=== PATIENT | female | born 1955 | race Caucasian/White ===

== ENCOUNTER 2018-06-15 14:18 | Inpatient (IN) | payer MEDICARE, MEDICAID ==
[2018-06-15] MEDS ORDERED: Maalox 30 mL Cup PO PRN (14:55)
[2018-06-15] MEDS ORDERED: Magnesium Hydroxide (MOM) 30 mL UDC PO PRN (14:55)
[2018-06-15 15:18] VITALS: BP 134/79
[2018-06-16 06:30] LABS: CHOLESTEROL 166 mg/dL (<200); HDL -HIGH DENSITY LIPOPROTEIN 53 mg/dL (23-92); TRIGLYCERIDES 106 mg/dL (<150)
[2018-06-16] MEDS ORDERED: Non-Formulary Item 1 EA (Atorvastatin Calcium [Lipitor] 20 MG) PO SCH (09:00)
--- NOTE | 2018-06-16 09:15 | History and Physical ---
History of Present Illness - HPI Chief Complaint: Hallucination HPI: Patient was transfered from [facility] due to Hallucinations, She was put in 5150. Vital Signs: Last Vital Signs Temp 98.4 F 06/16/18 06:04 Pulse 74 06/16/18 06:04 Resp 20 06/16/18 06:04 BP 150/72 06/16/18 06:04 Pulse Ox 97 06/16/18 06:04 Past Medical History Cardiovascular: Report: No Pertinent Hx Pulmonary: Report: No Pertinent Hx [employer]: Report: Dementia GI: Report: No Pertinent Hx Psych: Report: Psychosis Musculoskeletal: Report: No Pertinent Hx Rheumatologic: Report: No pertinent Hx Infectious Disease: Report: No Pertinent Hx Renal/: Report: No Pertinent Hx Endocrine: Report: Diabetes Dermatology: Report: No Pertinent Hx Family Medical History - Family Member Father Hx Family Diabetes: Yes Social History Smoke: No Alcohol: None Drugs: None Lives: [facility] Domestic Violence: Negative - Medications Home Medications: Home Medication Medication Instructions Recorded Type Atorvastatin Calcium [Lipitor] 20 mg PO DAILY 06/15/18 History Docusate Sodium [Colace] 100 mg PO BID 06/15/18 History Lorazepam [Ativan] 1 mg PO Q4HR PRN 06/15/18 History metFORMIN [Glucophage] 500 mg PO BID 06/15/18 History - Allergies Allergies/Adverse Reactions: Allergies Allergy/AdvReac Type Severity Reaction Status Date / Time No Known Allergies Allergy Verified 06/15/18 14:48 Review of Systems - Review of Systems Constitutional: Report: No Significant Eyes: Report: Other (Patient is blind) ENT: Report: No Significant Respiratory: Report: No Significant Cardiovascular: Report: No Significant Gastrointestinal: Report: No Significant Genitourinary: Report: No Significant Musculoskeletal: Report: No Significant Skin: Report: No Significant Neurological: Report: Weakness Physical Exam - Physical Exam HEENT: Report: Ears Nose Throat within normal limits, Other (Patient is blind) Neck: Report: Within normal limits Cardiovascular Systems: Report: Regular, Rate and Rhythm Respiratory: Report: Breath Sounds are within normal limits Abdomen: Report: Non-tender to palpation Extremities: Report: Non-tender to palpation. Skin: Report: Color of skin is within normal limits, Warm Neuro/Psych: Report: Disoriented to name time or place - Lab Results All Lab Results last 24 hours: Laboratory Results - last 24 hr 06/16/18 05:35 Triglycerides 106 Cholesterol 166 LDL Cholesterol Direct 96 HDL Cholesterol 53 - Assessment Assessment: Patient is awake, alert, calm, in no acute distress. Dx: Increased in agitation , Blind, DM, - Plan Plan: Patient is under Psychiatric care. Will continue with SNF meds. Will continue to monitor.
[2018-06-16] MEDS: Atorvastatin Calcium 10 MG TAB PO SCH (09:34)
[2018-06-16] MEDS: Multivitamin Tab PO SCH (09:35)
[2018-06-17 06:28] LABS: % BASOPHILS 0.6 % (0.0-2.0); % EOSINOPHILS 2.4 % (0.0-5.0); % LYMPHOCYTES 22.4 % (20.0-50.0); % MONOCYTES 7.4 % (2.0-10.0); % NEUTROPHILS 67.2 % (40.0-80.0); EOSINOPHILE ABSOLUTE 0.1 Th/cmm (0.1-0.4); HEMOGLOBIN 13.2 gm/dL (12-16); LYMPHOCYTE ABSOLUTE 1.3 Th/cmm (1.5-3.0); MEAN CELL VOLUME 90.1 fl (81-100); MEAN CORPUSCULAR HEMOGLOBIN 29.7 pg (27.0-31.0); MEAN PLATELET VOLUME 8.1 fl; MONOCYTE ABSOLUTE 0.4 Th/cmm (0.3-1.0); NEUTROPHILE ABSOLUTE 4.2 Th/cmm (1.8-8.0); PLATELET COUNT 302 Th/cmm (150-400); RED BLOOD COUNT 4.44 Mil/cmm (3.80-5.20); RED CELL DISTRIBUTION WIDTH 14.1 % (11.5-20.0)
[2018-06-17 06:36] LABS: ALB/GLOB RATIO 1.5 (1.0-1.8); ALBUMIN 4.1 gm/dL (3.7-5.3); ALKALINE PHOSPHATASE 80 U/L (34-104); ANION GAP 11.2 (7.0-16.0); BILIRUBIN,TOTAL 0.5 mg/dL (0.3-1.0); BUN - UREA NITROGEN 12 mg/dL (7-25); CALCIUM SERUM 9.5 mg/dL (8.6-10.3); CARBON DIOXIDE 26.6 mEq/L (21.0-31.0); CHLORIDE 105 mEq/L (98-107); CREATININE - SERUM 0.6 mg/dL (0.6-1.2); GFR AFRICAN-AMERICAN > 60.0 ml/min (>90); GFR NON AFRICAN-AMERICAN > 60.0 ml/min; GLUCOSE 119 mg/dL (70-105); POTASSIUM SERUM 3.8 mEq/L (3.5-5.1); SGOT 16 U/L (13-39); SGPT/ALT 14 U/L (7-52); SODIUM SERUM 139 mEq/L (136-145); TOTAL PROTEIN,SERUM 6.9 gm/dL (6.0-8.3)
--- NOTE | 2018-06-17 09:16 | General Progress Note ---
Subjective - Review of Systems Service Date: 06/17/18 Subjective: Patient is confused Objective - Results Result Diagrams: 06/17/18 05:45 06/17/18 05:45 Recent Labs: Laboratory Last Values WBC 6.0 Th/cmm (4.8-10.8) 06/17/18 05:45 RBC 4.44 Mil/cmm (3.80-5.20) 06/17/18 05:45 Hgb 13.2 gm/dL (12-16) 06/17/18 05:45 Hct 40.0 % (41.0-60) L 06/17/18 05:45 MCV 90.1 fl (81-100) 06/17/18 05:45 MCH 29.7 pg (27.0-31.0) 06/17/18 05:45 MCHC Differential 33.0 pg (28.0-36.0) 06/17/18 05:45 RDW 14.1 % (11.5-20.0) 06/17/18 05:45 Plt Count 302 Th/cmm (150-400) 06/17/18 05:45 MPV 8.1 fl 06/17/18 05:45 Neutrophils % 67.2 % (40.0-80.0) 06/17/18 05:45 Lymphocytes % 22.4 % (20.0-50.0) 06/17/18 05:45 Monocytes % 7.4 % (2.0-10.0) 06/17/18 05:45 Eosinophils % 2.4 % (0.0-5.0) 06/17/18 05:45 Basophils % 0.6 % (0.0-2.0) 06/17/18 05:45 Sodium 139 mEq/L (136-145) 06/17/18 05:45 Potassium 3.8 mEq/L (3.5-5.1) 06/17/18 05:45 Chloride 105 mEq/L (98-107) 06/17/18 05:45 Carbon Dioxide 26.6 mEq/L (21.0-31.0) 06/17/18 05:45 Anion Gap 11.2 (7.0-16.0) 06/17/18 05:45 BUN 12 mg/dL (7-25) 06/17/18 05:45 Creatinine 0.6 mg/dL (0.6-1.2) 06/17/18 05:45 Est GFR ( Amer) > 60.0 ml/min (>90) 06/17/18 05:45 Est GFR (Non-Af Amer) > 60.0 ml/min 06/17/18 05:45 BUN/Creatinine Ratio 20.0 06/17/18 05:45 Glucose 119 mg/dL (70-105) H 06/17/18 05:45 Calcium 9.5 mg/dL (8.6-10.3) 06/17/18 05:45 Total Bilirubin 0.5 mg/dL (0.3-1.0) 06/17/18 05:45 AST 16 U/L (13-39) 06/17/18 05:45 ALT 14 U/L (7-52) 06/17/18 05:45 Alkaline Phosphatase 80 U/L (34-104) 06/17/18 05:45 Total Protein 6.9 gm/dL (6.0-8.3) 06/17/18 05:45 Albumin 4.1 gm/dL (3.7-5.3) 06/17/18 05:45 Globulin 2.8 gm/dL 06/17/18 05:45 Albumin/Globulin Ratio 1.5 (1.0-1.8) 06/17/18 05:45 Triglycerides 106 mg/dL (<150) 06/16/18 05:35 Cholesterol 166 mg/dL (<200) 06/16/18 05:35 LDL Cholesterol Direct 96 mg/dL (75-193) 06/16/18 05:35 HDL Cholesterol 53 mg/dL (23-92) 06/16/18 05:35 TSH 1.60 uIU/ml (0.34-5.60) 06/17/18 05:45 - Physical Exam Vitals and I&O: Vital Signs Temp 97.7 F 06/17/18 05:20 Pulse 69 06/17/18 05:20 Resp 20 06/17/18 05:20 BP 113/63 06/17/18 05:20 Pulse Ox 97 06/17/18 05:20 Intake & Output 06/16/18 06/17/18 06/17/18 18:59 06:59 18:59 Intake Total 480 Balance 480 Intake: Oral 480 Other: # Voids 2 2 # Bowel Movements 1 Active Medications: Current Medications Acetaminophen (Tylenol) 650 mg PO Q4H PRN PRN Reason: Mild Pain / Temp above 100 Stop: 08/14/18 14:54 Al Hydrox/Mg Hydrox/Simethicone (Maalox) 30 ml PO Q4HR PRN PRN Reason: GI DISTRESS Stop: 08/14/18 14:54 Atorvastatin Calcium (Lipitor) 20 mg PO DAILY [facility]; Protocol Stop: 08/15/18 08:59 Last Admin: 06/16/18 09:34 Dose: 20 mg Docusate Sodium (Colace) 100 mg PO BID [facility] Stop: 08/14/18 16:59 Last Admin: 06/16/18 16:54 Dose: 100 mg Lorazepam (Ativan) 0.5 mg PO Q4H PRN; Protocol PRN Reason: Anxiety Stop: 08/14/18 14:54 Magnesium Hydroxide (Milk Of Magnesia) 30 ml PO HS PRN PRN Reason: Constipation Metformin HCl (Glucophage) 500 mg PO BID [facility] Stop: 08/14/18 16:59 Last Admin: 06/16/18 16:54 Dose: 500 mg Multivitamins/Vitamin C (Theragran) 1 tab PO DAILY [facility] Stop: 08/15/18 08:59 Last Admin: 06/16/18 09:35 Dose: 1 tab Quetiapine Fumarate (Seroquel) 25 mg PO BID [facility]; Protocol Stop: 08/15/18 08:59 Last Admin: 06/16/18 16:54 Dose: 25 mg Quetiapine Fumarate (Seroquel) 50 mg PO HS [facility]; Protocol Stop: 08/15/18 20:59 Last Admin: 06/16/18 21:14 Dose: 50 mg Zolpidem Tartrate (Ambien) 5 mg PO HS PRN PRN Reason: Insomnia Stop: 08/14/18 14:54 Last Admin: 06/16/18 21:14 Dose: 5 mg General: Alert, No acute distress HEENT: Atraumatic, Other (patient is blind) Neck: Supple Cardiovascular: Regular rate Lungs: Clear to auscultation Abdomen: Bowel sounds, Soft Extremities: Other (No edema) Neurological: Normal gait Skin: Other (Warm and dry) Psych/Mental Status: Other (Patient is confused, not oriented.) Assessment/Plan - Assessment Assessment: Patient is awake, alert, calm, in no acute distress. Dx: Increased in agitation , Blind, DM, - Plan Plan: Patient is under Psychiatric care. Will continue with SNF meds. Will continue to monitor.
[2018-06-17] MEDS: Atorvastatin Calcium 10 MG TAB PO SCH (09:24)
[2018-06-17] MEDS: Multivitamin Tab PO SCH (09:24)
--- NOTE | 2018-06-17 16:43 | Psychiatric Evaluation ---
DATE OF SERVICE: 06/15/2018 CHIEF COMPLAINT: Delusion and paranoia. HISTORY OF PRESENT ILLNESS: The patient is a 63-year-old female who I evaluated in [facility]. The patient has been delusional and actively responding to stimuli. The patient has been talking nonsense and was not able to carry on coherent conversation. The patient was talking about heaven, about ulises, and about up above, and was not able to give me any information about her living situation. The patient is legally blind and was actively talking to herself. PAST PSYCHIATRIC HISTORY: The patient has history of what seems to be schizoaffective disorder. PAST MEDICAL HISTORY: The patient is legally blind. SOCIAL HISTORY: Not much information known at this time, but it seems that the patient is living with her sister. No known alcohol or drug use. ALLERGIES: No known allergies. MENTAL STATUS EXAMINATION: The patient appears her stated age. Legally blind. Rambling and thought processes are circumstantial and with flight of ideas and disorganized. The patient did not answer questions regarding hallucinations or delusions, but actively responding to stimuli. The patient is alert, but seems to be disoriented to time, place, person, and situation. Unable to assess her memory at this time because the patient was not able to answer the questions currently. Poor insight and poor judgment. ASSESSMENT: PRIMARY DIAGNOSES: Schizoaffective disorder, mixed type, severe, with psychotic features. MEDICAL DIAGNOSIS: Legally blind. TREATMENT PLAN: Continue to monitor her behavior and her condition closely. We will start Seroquel in a dose of 25 mg b.i.d. and 50 mg at bedtime. Also, we will monitor her behavior and work on possible placement issue versus more information about her living situation. ESTIMATED LENGTH OF STAY: 5-7 days. THE PATIENT'S STRENGTHS AND WEAKNESSES: The patient's strength is not clear at this time. Weaknesses is her psychosis and delusion. AFTER DISCHARGE PLAN: Outpatient treatment and followup will continue as an outpatient and the patient might need placement. CRITERIA FOR DISCHARGE: The patient will not be psychotic and will stabilize psychotropic medications and we will establish outpatient treatment plans. [facility]# [id number]
--- NOTE | 2018-06-18 02:38 | Progress Notes ---
DATE: 06/17/2018 PSYCHIATRIC PROGRESS NOTE SUBJECTIVE: Chart reviewed and the patient interviewed. Also discussed the patient's condition with the staff and reviewed records and labs. The patient is still easily agitated. The patient also is actively hallucinating and talking to herself. The patient also is delusional and paranoid. The patient is still unable to provide any safe plan for self-care. She also still needs lots of redirections. Otherwise, the patient is compliant with taking her medications with no side effects. ASSESSMENT: The patient is still psychotic and is still confused. TREATMENT PLAN: We will continue monitoring her condition and her medications closely. Also, we will work on her psychosis. Also, we will place the patient on 5250 hold for dangerous to self as well as grave disability. JOB# [id number]
[2018-06-18] MEDS ORDERED: Haloperidol Lactate 5 mg/mL 1mL Vial IM ONE (04:37)
--- NOTE | 2018-06-18 08:30 | Progress Notes ---
DATE: 06/18/2018 PSYCHIATRIC PROGRESS NOTE SUBJECTIVE: Chart reviewed and the patient interviewed. Also discussed the patient's condition with the staff and reviewed records and labs. The patient did not sleep almost all night and the patient had to be given Haldol and Ativan emergency dose to calm her down because she was "talking to the devil." The patient has been rambling and has been talking to the devil and said that the devil has been talking to her. The patient also has been yelling and screaming and has been having difficulty following any of the staff directions. She also has been easily agitated and easily irritable. The patient also has been restless and has been having severe mood swings. Also has been having difficulty following any of the staff directions. During interview, the patient is rambling and unable to carry on coherent conversation. ASSESSMENT: The patient is still agitated and is still psychotic and actively hallucinating. TREATMENT PLAN: Continue monitoring her behavior and her condition closely. Also, we will increase Seroquel to 50 mg twice a day and 100 mg at bedtime and we will continue to follow up her condition and her behavior closely. JOB# [id number]
--- NOTE | 2018-06-18 09:16 | General Progress Note ---
Subjective - Review of Systems Service Date: 06/18/18 Subjective: Patient is confused Objective - Results Result Diagrams: 06/17/18 05:45 06/17/18 05:45 Recent Labs: Laboratory Last Values WBC 6.0 Th/cmm (4.8-10.8) 06/17/18 05:45 RBC 4.44 Mil/cmm (3.80-5.20) 06/17/18 05:45 Hgb 13.2 gm/dL (12-16) 06/17/18 05:45 Hct 40.0 % (41.0-60) L 06/17/18 05:45 MCV 90.1 fl (81-100) 06/17/18 05:45 MCH 29.7 pg (27.0-31.0) 06/17/18 05:45 MCHC Differential 33.0 pg (28.0-36.0) 06/17/18 05:45 RDW 14.1 % (11.5-20.0) 06/17/18 05:45 Plt Count 302 Th/cmm (150-400) 06/17/18 05:45 MPV 8.1 fl 06/17/18 05:45 Neutrophils % 67.2 % (40.0-80.0) 06/17/18 05:45 Lymphocytes % 22.4 % (20.0-50.0) 06/17/18 05:45 Monocytes % 7.4 % (2.0-10.0) 06/17/18 05:45 Eosinophils % 2.4 % (0.0-5.0) 06/17/18 05:45 Basophils % 0.6 % (0.0-2.0) 06/17/18 05:45 Sodium 139 mEq/L (136-145) 06/17/18 05:45 Potassium 3.8 mEq/L (3.5-5.1) 06/17/18 05:45 Chloride 105 mEq/L (98-107) 06/17/18 05:45 Carbon Dioxide 26.6 mEq/L (21.0-31.0) 06/17/18 05:45 Anion Gap 11.2 (7.0-16.0) 06/17/18 05:45 BUN 12 mg/dL (7-25) 06/17/18 05:45 Creatinine 0.6 mg/dL (0.6-1.2) 06/17/18 05:45 Est GFR ( Amer) > 60.0 ml/min (>90) 06/17/18 05:45 Est GFR (Non-Af Amer) > 60.0 ml/min 06/17/18 05:45 BUN/Creatinine Ratio 20.0 06/17/18 05:45 Glucose 119 mg/dL (70-105) H 06/17/18 05:45 Calcium 9.5 mg/dL (8.6-10.3) 06/17/18 05:45 Total Bilirubin 0.5 mg/dL (0.3-1.0) 06/17/18 05:45 AST 16 U/L (13-39) 06/17/18 05:45 ALT 14 U/L (7-52) 06/17/18 05:45 Alkaline Phosphatase 80 U/L (34-104) 06/17/18 05:45 Total Protein 6.9 gm/dL (6.0-8.3) 06/17/18 05:45 Albumin 4.1 gm/dL (3.7-5.3) 06/17/18 05:45 Globulin 2.8 gm/dL 06/17/18 05:45 Albumin/Globulin Ratio 1.5 (1.0-1.8) 06/17/18 05:45 Triglycerides 106 mg/dL (<150) 06/16/18 05:35 Cholesterol 166 mg/dL (<200) 06/16/18 05:35 LDL Cholesterol Direct 96 mg/dL (75-193) 06/16/18 05:35 HDL Cholesterol 53 mg/dL (23-92) 06/16/18 05:35 TSH 1.60 uIU/ml (0.34-5.60) 06/17/18 05:45 - Physical Exam Vitals and I&O: Vital Signs Temp 98.2 F 06/18/18 06:36 Pulse 79 06/18/18 06:36 Resp 18 06/18/18 06:36 BP 117/64 06/18/18 06:36 Pulse Ox 98 06/18/18 06:36 Intake & Output 06/17/18 06/18/18 06/18/18 18:59 06:59 18:59 Intake Total 480 Balance 480 Intake: Oral 480 Other: # Voids 2 Active Medications: Current Medications Acetaminophen (Tylenol) 650 mg PO Q4H PRN PRN Reason: Mild Pain / Temp above 100 Stop: 08/14/18 14:54 Al Hydrox/Mg Hydrox/Simethicone (Maalox) 30 ml PO Q4HR PRN PRN Reason: GI DISTRESS Stop: 08/14/18 14:54 Atorvastatin Calcium (Lipitor) 20 mg PO DAILY [facility]; Protocol Stop: 08/15/18 08:59 Last Admin: 06/17/18 09:24 Dose: 20 mg Docusate Sodium (Colace) 100 mg PO BID [facility] Stop: 08/14/18 16:59 Last Admin: 06/17/18 17:02 Dose: 100 mg Lorazepam (Ativan) 0.5 mg PO Q4H PRN; Protocol PRN Reason: Anxiety Stop: 08/14/18 14:54 Last Admin: 06/18/18 00:30 Dose: 0.5 mg Magnesium Hydroxide (Milk Of Magnesia) 30 ml PO HS PRN PRN Reason: Constipation Metformin HCl (Glucophage) 500 mg PO BID [facility] Stop: 08/14/18 16:59 Last Admin: 06/17/18 17:02 Dose: 500 mg Multivitamins/Vitamin C (Theragran) 1 tab PO DAILY [facility] Stop: 08/15/18 08:59 Last Admin: 06/17/18 09:24 Dose: 1 tab Quetiapine Fumarate (Seroquel) 50 mg PO BID [facility]; Protocol Stop: 08/17/18 08:59 Quetiapine Fumarate (Seroquel) 100 mg PO HS [facility]; Protocol Stop: 08/17/18 20:59 Zolpidem Tartrate (Ambien) 5 mg PO HS PRN PRN Reason: Insomnia Stop: 08/14/18 14:54 Last Admin: 06/16/18 21:14 Dose: 5 mg General: Alert, No acute distress HEENT: Atraumatic, Other (patient is blind) Neck: Supple Cardiovascular: Regular rate Lungs: Clear to auscultation Abdomen: Bowel sounds, Soft Extremities: Other (No edema) Neurological: Normal gait Skin: Other (Warm and dry) Psych/Mental Status: Other (Patient is confused, not oriented.) Assessment/Plan - Assessment Assessment: Patient is awake, alert, calm, in no acute distress. Dx: Increased in agitation , Blind, DM, - Plan Plan: Patient is under Psychiatric care. Will continue with SNF meds. Will continue to monitor.
[2018-06-18] MEDS: Atorvastatin Calcium 10 MG TAB PO SCH (10:50)
[2018-06-18] MEDS: Multivitamin Tab PO SCH (10:50)
[2018-06-19] MEDS: Multivitamin Tab PO SCH (09:21)
[2018-06-19] MEDS: Atorvastatin Calcium 10 MG TAB PO SCH (09:21)
--- NOTE | 2018-06-19 13:00 | General Progress Note ---
Subjective - Review of Systems Service Date: 06/19/18 Subjective: Patient is confused. Objective - Results Result Diagrams: 06/17/18 05:45 06/17/18 05:45 Recent Labs: Laboratory Last Values WBC 6.0 Th/cmm (4.8-10.8) 06/17/18 05:45 RBC 4.44 Mil/cmm (3.80-5.20) 06/17/18 05:45 Hgb 13.2 gm/dL (12-16) 06/17/18 05:45 Hct 40.0 % (41.0-60) L 06/17/18 05:45 MCV 90.1 fl (81-100) 06/17/18 05:45 MCH 29.7 pg (27.0-31.0) 06/17/18 05:45 MCHC Differential 33.0 pg (28.0-36.0) 06/17/18 05:45 RDW 14.1 % (11.5-20.0) 06/17/18 05:45 Plt Count 302 Th/cmm (150-400) 06/17/18 05:45 MPV 8.1 fl 06/17/18 05:45 Neutrophils % 67.2 % (40.0-80.0) 06/17/18 05:45 Lymphocytes % 22.4 % (20.0-50.0) 06/17/18 05:45 Monocytes % 7.4 % (2.0-10.0) 06/17/18 05:45 Eosinophils % 2.4 % (0.0-5.0) 06/17/18 05:45 Basophils % 0.6 % (0.0-2.0) 06/17/18 05:45 Sodium 139 mEq/L (136-145) 06/17/18 05:45 Potassium 3.8 mEq/L (3.5-5.1) 06/17/18 05:45 Chloride 105 mEq/L (98-107) 06/17/18 05:45 Carbon Dioxide 26.6 mEq/L (21.0-31.0) 06/17/18 05:45 Anion Gap 11.2 (7.0-16.0) 06/17/18 05:45 BUN 12 mg/dL (7-25) 06/17/18 05:45 Creatinine 0.6 mg/dL (0.6-1.2) 06/17/18 05:45 Est GFR ( Amer) > 60.0 ml/min (>90) 06/17/18 05:45 Est GFR (Non-Af Amer) > 60.0 ml/min 06/17/18 05:45 BUN/Creatinine Ratio 20.0 06/17/18 05:45 Glucose 119 mg/dL (70-105) H 06/17/18 05:45 Calcium 9.5 mg/dL (8.6-10.3) 06/17/18 05:45 Total Bilirubin 0.5 mg/dL (0.3-1.0) 06/17/18 05:45 AST 16 U/L (13-39) 06/17/18 05:45 ALT 14 U/L (7-52) 06/17/18 05:45 Alkaline Phosphatase 80 U/L (34-104) 06/17/18 05:45 Total Protein 6.9 gm/dL (6.0-8.3) 06/17/18 05:45 Albumin 4.1 gm/dL (3.7-5.3) 06/17/18 05:45 Globulin 2.8 gm/dL 06/17/18 05:45 Albumin/Globulin Ratio 1.5 (1.0-1.8) 06/17/18 05:45 Triglycerides 106 mg/dL (<150) 06/16/18 05:35 Cholesterol 166 mg/dL (<200) 06/16/18 05:35 LDL Cholesterol Direct 96 mg/dL (75-193) 06/16/18 05:35 HDL Cholesterol 53 mg/dL (23-92) 06/16/18 05:35 TSH 1.60 uIU/ml (0.34-5.60) 06/17/18 05:45 - Physical Exam Vitals and I&O: Vital Signs Temp 97.9 F 06/19/18 05:53 Pulse 79 06/19/18 05:53 Resp 20 06/19/18 05:53 BP 142/73 06/19/18 05:53 Pulse Ox 97 06/19/18 05:53 Intake & Output 06/18/18 06/19/18 06/19/18 18:59 06:59 18:59 Intake Total 120 Balance 120 Intake: Oral 120 Other: # Voids 3 Active Medications: Current Medications Acetaminophen (Tylenol) 650 mg PO Q4H PRN PRN Reason: Mild Pain / Temp above 100 Stop: 08/14/18 14:54 Al Hydrox/Mg Hydrox/Simethicone (Maalox) 30 ml PO Q4HR PRN PRN Reason: GI DISTRESS Stop: 08/14/18 14:54 Atorvastatin Calcium (Lipitor) 20 mg PO DAILY [facility]; Protocol Stop: 08/15/18 08:59 Last Admin: 06/19/18 09:21 Dose: 20 mg Docusate Sodium (Colace) 100 mg PO BID [facility] Stop: 08/14/18 16:59 Last Admin: 06/19/18 09:21 Dose: 100 mg Lorazepam (Ativan) 0.5 mg PO Q4H PRN; Protocol PRN Reason: Anxiety Stop: 08/14/18 14:54 Last Admin: 06/19/18 06:10 Dose: 0.5 mg Magnesium Hydroxide (Milk Of Magnesia) 30 ml PO HS PRN PRN Reason: Constipation Metformin HCl (Glucophage) 500 mg PO BID [facility] Stop: 08/14/18 16:59 Last Admin: 06/19/18 09:21 Dose: 500 mg Multivitamins/Vitamin C (Theragran) 1 tab PO DAILY [facility] Stop: 08/15/18 08:59 Last Admin: 06/19/18 09:21 Dose: 1 tab Quetiapine Fumarate (Seroquel) 50 mg PO BID [facility]; Protocol Stop: 08/17/18 08:59 Last Admin: 06/19/18 09:21 Dose: 50 mg Quetiapine Fumarate (Seroquel) 100 mg PO HS [facility]; Protocol Stop: 08/17/18 20:59 Last Admin: 06/18/18 20:33 Dose: 100 mg Zolpidem Tartrate (Ambien) 5 mg PO HS PRN PRN Reason: Insomnia Stop: 08/14/18 14:54 Last Admin: 06/16/18 21:14 Dose: 5 mg General: Alert, No acute distress HEENT: Atraumatic, Other (patient is blind) Neck: Supple Cardiovascular: Regular rate Lungs: Clear to auscultation Abdomen: Bowel sounds, Soft Extremities: Other (No edema) Neurological: Normal gait Skin: Other (Warm and dry) Psych/Mental Status: Other (Patient is confused, not oriented.) Assessment/Plan - Assessment Assessment: Patient is awake, alert, calm, in no acute distress. Dx: Increased in agitation , Blind, DM, - Plan Plan: Patient is under Psychiatric care. Will continue with SNF meds. Will continue to monitor.
--- NOTE | 2018-06-20 09:01 | General Progress Note ---
Subjective - Review of Systems Service Date: 06/20/18 Subjective: Patient is confused. Objective - Results Result Diagrams: 06/17/18 05:45 06/17/18 05:45 Recent Labs: Laboratory Last Values WBC 6.0 Th/cmm (4.8-10.8) 06/17/18 05:45 RBC 4.44 Mil/cmm (3.80-5.20) 06/17/18 05:45 Hgb 13.2 gm/dL (12-16) 06/17/18 05:45 Hct 40.0 % (41.0-60) L 06/17/18 05:45 MCV 90.1 fl (81-100) 06/17/18 05:45 MCH 29.7 pg (27.0-31.0) 06/17/18 05:45 MCHC Differential 33.0 pg (28.0-36.0) 06/17/18 05:45 RDW 14.1 % (11.5-20.0) 06/17/18 05:45 Plt Count 302 Th/cmm (150-400) 06/17/18 05:45 MPV 8.1 fl 06/17/18 05:45 Neutrophils % 67.2 % (40.0-80.0) 06/17/18 05:45 Lymphocytes % 22.4 % (20.0-50.0) 06/17/18 05:45 Monocytes % 7.4 % (2.0-10.0) 06/17/18 05:45 Eosinophils % 2.4 % (0.0-5.0) 06/17/18 05:45 Basophils % 0.6 % (0.0-2.0) 06/17/18 05:45 Sodium 139 mEq/L (136-145) 06/17/18 05:45 Potassium 3.8 mEq/L (3.5-5.1) 06/17/18 05:45 Chloride 105 mEq/L (98-107) 06/17/18 05:45 Carbon Dioxide 26.6 mEq/L (21.0-31.0) 06/17/18 05:45 Anion Gap 11.2 (7.0-16.0) 06/17/18 05:45 BUN 12 mg/dL (7-25) 06/17/18 05:45 Creatinine 0.6 mg/dL (0.6-1.2) 06/17/18 05:45 Est GFR ( Amer) > 60.0 ml/min (>90) 06/17/18 05:45 Est GFR (Non-Af Amer) > 60.0 ml/min 06/17/18 05:45 BUN/Creatinine Ratio 20.0 06/17/18 05:45 Glucose 119 mg/dL (70-105) H 06/17/18 05:45 Calcium 9.5 mg/dL (8.6-10.3) 06/17/18 05:45 Total Bilirubin 0.5 mg/dL (0.3-1.0) 06/17/18 05:45 AST 16 U/L (13-39) 06/17/18 05:45 ALT 14 U/L (7-52) 06/17/18 05:45 Alkaline Phosphatase 80 U/L (34-104) 06/17/18 05:45 Total Protein 6.9 gm/dL (6.0-8.3) 06/17/18 05:45 Albumin 4.1 gm/dL (3.7-5.3) 06/17/18 05:45 Globulin 2.8 gm/dL 06/17/18 05:45 Albumin/Globulin Ratio 1.5 (1.0-1.8) 06/17/18 05:45 Triglycerides 106 mg/dL (<150) 06/16/18 05:35 Cholesterol 166 mg/dL (<200) 06/16/18 05:35 LDL Cholesterol Direct 96 mg/dL (75-193) 06/16/18 05:35 HDL Cholesterol 53 mg/dL (23-92) 06/16/18 05:35 TSH 1.60 uIU/ml (0.34-5.60) 06/17/18 05:45 - Physical Exam Vitals and I&O: Vital Signs Temp 98.0 F 06/20/18 06:44 Pulse 77 06/20/18 06:44 Resp 20 06/20/18 06:44 BP 142/80 06/20/18 06:44 Pulse Ox 97 06/20/18 06:44 Intake & Output 06/19/18 06/20/18 06/20/18 18:59 06:59 18:59 Other: # Voids 4 Active Medications: Current Medications Acetaminophen (Tylenol) 650 mg PO Q4H PRN PRN Reason: Mild Pain / Temp above 100 Stop: 08/14/18 14:54 Al Hydrox/Mg Hydrox/Simethicone (Maalox) 30 ml PO Q4HR PRN PRN Reason: GI DISTRESS Stop: 08/14/18 14:54 Atorvastatin Calcium (Lipitor) 20 mg PO DAILY [facility]; Protocol Stop: 08/15/18 08:59 Last Admin: 06/19/18 09:21 Dose: 20 mg Docusate Sodium (Colace) 100 mg PO BID [facility] Stop: 08/14/18 16:59 Last Admin: 06/19/18 17:31 Dose: 100 mg Lorazepam (Ativan) 0.5 mg PO Q4H PRN; Protocol PRN Reason: Anxiety Stop: 08/14/18 14:54 Last Admin: 06/19/18 06:10 Dose: 0.5 mg Magnesium Hydroxide (Milk Of Magnesia) 30 ml PO HS PRN PRN Reason: Constipation Metformin HCl (Glucophage) 500 mg PO BID [facility] Stop: 08/14/18 16:59 Last Admin: 06/19/18 17:31 Dose: 500 mg Multivitamins/Vitamin C (Theragran) 1 tab PO DAILY [facility] Stop: 08/15/18 08:59 Last Admin: 06/19/18 09:21 Dose: 1 tab Quetiapine Fumarate (Seroquel) 125 mg PO HS [facility]; Protocol Stop: 08/19/18 20:59 Quetiapine Fumarate (Seroquel) 62.5 mg PO BID [facility]; Protocol Stop: 08/19/18 08:59 Zolpidem Tartrate (Ambien) 5 mg PO HS PRN PRN Reason: Insomnia Stop: 08/14/18 14:54 Last Admin: 06/16/18 21:14 Dose: 5 mg General: Alert, No acute distress HEENT: Atraumatic, Other (patient is blind) Neck: Supple Cardiovascular: Regular rate Lungs: Clear to auscultation Abdomen: Bowel sounds, Soft Extremities: Other (No edema) Neurological: Normal gait Skin: Other (Warm and dry) Psych/Mental Status: Other (Patient is confused, not oriented.) Assessment/Plan - Assessment Assessment: Patient is awake, alert, calm, in no acute distress. Dx: Increased in agitation , Blind, DM, - Plan Plan: Patient is under Psychiatric care. Will continue with SNF meds. Will continue to monitor. Nutritional Asmnt/Malnutr-PDOC - Dietary Evaluation Malnutrition Findings (Please click <Entered> for more info): Nutritional Asmnt/Malnutrition Start: 06/19/18 13: 00 Text: Status: Complete Freq: Protocol: Document 06/19/18 13:01 MONCHO (Rec: 06/19/18 13:13 MONCHO THOMAS) Nutritional Asmnt/Malnutrition Patient General Information Nutritional Screening Moderate Risk Diagnosis bipolar disorder Pertinent Medical Hx/Surgical Hx dementia, psychosis, diabetes, legally blind Subjective Information Pt eating lunch in hallway at time of visit. Pt was confused , but provided food preferences. Nursing noted PO intake: 75-100% average since admit. Current Diet Order/ Nutrition Support CCHO 45g Pertinent Medications maalox, lipitor, colace, MOM, glucophage, theragran, seroquel Pertinent Labs 06/17: glucose 119 Nutritional Hx/Data Height 1.6 m Height (Calculated Centimeters) 160.0 Current Weight (lbs) 100.698 kg Weight (Calculated Kilograms) 100.7 Weight (Calculated Grams) 753355.5 [place] Body Weight 115 lb Body Mass Index (BMI) 39.3 Weight Status Obese GI Symptoms GI Symptoms None Last BM 06/16 Difficult in: None Food Allergies No Skin Integrity/Comment: intact Current %PO Good (75-100%) Estimated Nutritional Goals BEE in Kcals: Adj wt of IBW Calories/Kcals/Kg 25-30 (adj wt 142 lbs) Kcals Calculated 8746-5267 Protein: Adj wt of IBW Protein g/k-1.2 Protein Calculated 64-77 g Fluid: ml 7521-8181 (1 ml/kcal) Nutritional Problem No current Nutrition Prob Problem no nutrition dx at this time Malnutrition Alert Is there a minimum of two criteria No selected? Query Text:Check all the applicable criteria. A minimum of two criteria are recommended for diagnosis of either severe or non-severe malnutrition. Malnutrition Related to Morbid Obesity Malnutrition related to morbid obesity No Intervention/Recommendation Comments 1. Continue with CCHO diet. Recommend modifying carb to 60gm. 2. Monitor PO intake, wt, and labs 3. F/U as low risk in 7 days, 06/26 Expected Outcomes/Goals Expected Outcomes/Goals 1. PO intake to meet at least 75% of all meals 2. Wt stability and nutrition related labs WNL. Reviewed by Summer Villa RD
--- NOTE | 2018-06-20 09:40 | Progress Notes ---
DATE: 06/19/2018 SUBJECTIVE: Chart reviewed and the patient interviewed. Also discussed the patient's condition with the staff and reviewed records and labs. The patient is still easily irritable and easily agitated and she is still talking to the devil and thinks that the devil is chasing her. The patient also is still restless and still gets agitated easily, especially when staff needs to redirect her. On the other hand, the patient did not require any emergency medications and she is relatively calmer than yesterday. At the same time, we will continue to manage her behavior and continue to follow up. JOB# [id number]
[2018-06-20] MEDS: Atorvastatin Calcium 10 MG TAB PO SCH (09:43)
[2018-06-20] MEDS: Multivitamin Tab PO SCH (09:43)
--- NOTE | 2018-06-20 15:11 | Progress Notes ---
DATE: 06/20/2018 SUBJECTIVE: Chart reviewed and the patient interviewed. Also discussed the patient's condition with the staff and reviewed records and labs. The patient continued to be actively hallucinating and actively responding to stimuli. She also continued to talk to imaginary objects. Since the patient also is still loud and have episodes of yelling and screaming and talking to imaginary options including talking to "The devil." She also continued to say that the devil is "chasing me." She also still needs lots of redirections. Otherwise, the patient is compliant with taking her medications with no side effects of medications. ASSESSMENT: The patient is still psychotic and actively hallucinating. TREATMENT PLAN: Continue to monitor her behavior and her condition closely. Also, we will increase Seroquel to 62.5 mg twice a day and 125 mg at bedtime and continue to follow up closely. [facility]# [id number]
[2018-06-21] MEDS: Multivitamin Tab PO SCH (08:50)
[2018-06-21] MEDS: Atorvastatin Calcium 10 MG TAB PO SCH (08:50)
--- NOTE | 2018-06-21 09:06 | General Progress Note ---
Subjective - Review of Systems Service Date: 06/21/18 Subjective: Patient is confused, agitated at moments. Objective - Results Result Diagrams: 06/17/18 05:45 06/17/18 05:45 Recent Labs: Laboratory Last Values WBC 6.0 Th/cmm (4.8-10.8) 06/17/18 05:45 RBC 4.44 Mil/cmm (3.80-5.20) 06/17/18 05:45 Hgb 13.2 gm/dL (12-16) 06/17/18 05:45 Hct 40.0 % (41.0-60) L 06/17/18 05:45 MCV 90.1 fl (81-100) 06/17/18 05:45 MCH 29.7 pg (27.0-31.0) 06/17/18 05:45 MCHC Differential 33.0 pg (28.0-36.0) 06/17/18 05:45 RDW 14.1 % (11.5-20.0) 06/17/18 05:45 Plt Count 302 Th/cmm (150-400) 06/17/18 05:45 MPV 8.1 fl 06/17/18 05:45 Neutrophils % 67.2 % (40.0-80.0) 06/17/18 05:45 Lymphocytes % 22.4 % (20.0-50.0) 06/17/18 05:45 Monocytes % 7.4 % (2.0-10.0) 06/17/18 05:45 Eosinophils % 2.4 % (0.0-5.0) 06/17/18 05:45 Basophils % 0.6 % (0.0-2.0) 06/17/18 05:45 Sodium 139 mEq/L (136-145) 06/17/18 05:45 Potassium 3.8 mEq/L (3.5-5.1) 06/17/18 05:45 Chloride 105 mEq/L (98-107) 06/17/18 05:45 Carbon Dioxide 26.6 mEq/L (21.0-31.0) 06/17/18 05:45 Anion Gap 11.2 (7.0-16.0) 06/17/18 05:45 BUN 12 mg/dL (7-25) 06/17/18 05:45 Creatinine 0.6 mg/dL (0.6-1.2) 06/17/18 05:45 Est GFR ( Amer) > 60.0 ml/min (>90) 06/17/18 05:45 Est GFR (Non-Af Amer) > 60.0 ml/min 06/17/18 05:45 BUN/Creatinine Ratio 20.0 06/17/18 05:45 Glucose 119 mg/dL (70-105) H 06/17/18 05:45 Calcium 9.5 mg/dL (8.6-10.3) 06/17/18 05:45 Total Bilirubin 0.5 mg/dL (0.3-1.0) 06/17/18 05:45 AST 16 U/L (13-39) 06/17/18 05:45 ALT 14 U/L (7-52) 06/17/18 05:45 Alkaline Phosphatase 80 U/L (34-104) 06/17/18 05:45 Total Protein 6.9 gm/dL (6.0-8.3) 06/17/18 05:45 Albumin 4.1 gm/dL (3.7-5.3) 06/17/18 05:45 Globulin 2.8 gm/dL 06/17/18 05:45 Albumin/Globulin Ratio 1.5 (1.0-1.8) 06/17/18 05:45 Triglycerides 106 mg/dL (<150) 06/16/18 05:35 Cholesterol 166 mg/dL (<200) 06/16/18 05:35 LDL Cholesterol Direct 96 mg/dL (75-193) 06/16/18 05:35 HDL Cholesterol 53 mg/dL (23-92) 06/16/18 05:35 TSH 1.60 uIU/ml (0.34-5.60) 06/17/18 05:45 - Physical Exam Vitals and I&O: Vital Signs Temp 97.9 F 06/21/18 06:01 Pulse 75 06/21/18 06:01 Resp 18 06/21/18 06:01 BP 137/68 06/21/18 06:01 Pulse Ox 98 06/21/18 06:01 Intake & Output 06/20/18 06/21/18 06/21/18 18:59 06:59 18:59 Intake Total 1000 480 Balance 1000 480 Intake: Oral 1000 480 Other: # Voids 4 2 # Bowel Movements 1 Active Medications: Current Medications Acetaminophen (Tylenol) 650 mg PO Q4H PRN PRN Reason: Mild Pain / Temp above 100 Stop: 08/14/18 14:54 Al Hydrox/Mg Hydrox/Simethicone (Maalox) 30 ml PO Q4HR PRN PRN Reason: GI DISTRESS Stop: 08/14/18 14:54 Atorvastatin Calcium (Lipitor) 20 mg PO DAILY [facility]; Protocol Stop: 08/15/18 08:59 Last Admin: 06/21/18 08:50 Dose: 20 mg Docusate Sodium (Colace) 100 mg PO BID [facility] Stop: 08/14/18 16:59 Last Admin: 06/21/18 08:50 Dose: 100 mg Lorazepam (Ativan) 0.5 mg PO Q4H PRN; Protocol PRN Reason: Anxiety Stop: 08/14/18 14:54 Last Admin: 06/21/18 08:51 Dose: 0.5 mg Magnesium Hydroxide (Milk Of Magnesia) 30 ml PO HS PRN PRN Reason: Constipation Metformin HCl (Glucophage) 500 mg PO BID [facility] Stop: 08/14/18 16:59 Last Admin: 06/21/18 08:50 Dose: 500 mg Multivitamins/Vitamin C (Theragran) 1 tab PO DAILY [facility] Stop: 08/15/18 08:59 Last Admin: 06/21/18 08:50 Dose: 1 tab Quetiapine Fumarate 100 mg/ (Quetiapine Fumarate 25 mg) 125 mg PO HS [facility] Stop: 08/19/18 20:59 Last Admin: 06/20/18 21:10 Dose: 125 mg Quetiapine Fumarate (Seroquel) 62.5 mg PO BID [facility] Stop: 08/19/18 11:59 Last Admin: 06/21/18 08:51 Dose: 62.5 mg Zolpidem Tartrate (Ambien) 5 mg PO HS PRN PRN Reason: Insomnia Stop: 08/14/18 14:54 Last Admin: 06/16/18 21:14 Dose: 5 mg General: Alert, No acute distress HEENT: Atraumatic, Other (patient is blind) Neck: Supple Cardiovascular: Regular rate Lungs: Clear to auscultation Abdomen: Bowel sounds, Soft Extremities: Other (No edema) Neurological: Normal gait Skin: Other (Warm and dry) Psych/Mental Status: Other (Patient is confused, not oriented.) Assessment/Plan - Assessment Assessment: Patient is awake, alert, calm, in no acute distress. Dx: Increased in agitation , Blind, DM. - Plan Plan: Patient is under Psychiatric care. Will continue with SNF meds. Will continue to monitor. Nutritional Asmnt/Malnutr-PDOC - Dietary Evaluation Malnutrition Findings (Please click <Entered> for more info): Nutritional Asmnt/Malnutrition Start: 06/19/18 13: 00 Text: Status: Complete Freq: Protocol: Document 06/19/18 13:01 MONCHO (Rec: 06/19/18 13:13 MONCHO THOMAS) Nutritional Asmnt/Malnutrition Patient General Information Nutritional Screening Moderate Risk Diagnosis bipolar disorder Pertinent Medical Hx/Surgical Hx dementia, psychosis, diabetes, legally blind Subjective Information Pt eating lunch in hallway at time of visit. Pt was confused , but provided food preferences. Nursing noted PO intake: 75-100% average since admit. Current Diet Order/ Nutrition Support CCHO 45g Pertinent Medications maalox, lipitor, colace, MOM, glucophage, theragran, seroquel Pertinent Labs 06/17: glucose 119 Nutritional Hx/Data Height 1.6 m Height (Calculated Centimeters) 160.0 Current Weight (lbs) 100.698 kg Weight (Calculated Kilograms) 100.7 Weight (Calculated Grams) 499587.5 [place] Body Weight 115 lb Body Mass Index (BMI) 39.3 Weight Status Obese GI Symptoms GI Symptoms None Last BM 06/16 Difficult in: None Food Allergies No Skin Integrity/Comment: intact Current %PO Good (75-100%) Estimated Nutritional Goals BEE in Kcals: Adj wt of IBW Calories/Kcals/Kg 25-30 (adj wt 142 lbs) Kcals Calculated 1666-0056 Protein: Adj wt of IBW Protein g/k-1.2 Protein Calculated 64-77 g Fluid: ml 0879-7201 (1 ml/kcal) Nutritional Problem No current Nutrition Prob Problem no nutrition dx at this time Malnutrition Alert Is there a minimum of two criteria No selected? Query Text:Check all the applicable criteria. A minimum of two criteria are recommended for diagnosis of either severe or non-severe malnutrition. Malnutrition Related to Morbid Obesity Malnutrition related to morbid obesity No Intervention/Recommendation Comments 1. Continue with CCHO diet. Recommend modifying carb to 60gm. 2. Monitor PO intake, wt, and labs 3. F/U as low risk in 7 days, 06/26 Expected Outcomes/Goals Expected Outcomes/Goals 1. PO intake to meet at least 75% of all meals 2. Wt stability and nutrition related labs WNL. Reviewed by Summer Villa RD
--- NOTE | 2018-06-21 21:06 | Progress Notes ---
DATE: 06/21/2018 CSUBJECTIVE: Chart reviewed and the patient interviewed. Also, discussed the patient's condition with the staff and reviewed records and labs. The patient is still hyperverbal and the patient is still hypertalkative. Also thought processes are circumstantial with flight of ideas. The patient also is still talking to imaginary objects and still talking about the devil chasing her and that she is talking to the devil. The patient also is demanding and she is still confused, but seems to be slightly easier to redirect her. Otherwise, the patient is compliant with taking her medications with no side effect. ASSESSMENT: The patient is still psychotic. TREATMENT PLAN: Continue to monitor her behavior and her condition closely. Also, Seroquel was increased yesterday to 62.5 mg twice a day and 125 mg at bedtime with no side effects. We will continue same dose and continue to follow up. JOB# [id number]
[2018-06-22] MEDS ORDERED: Haloperidol Lactate 5 mg/mL 1mL Vial IM ONE (04:32)
[2018-06-22] MEDS: Atorvastatin Calcium 10 MG TAB PO SCH (09:24)
[2018-06-22] MEDS: Multivitamin Tab PO SCH (09:25)
--- NOTE | 2018-06-22 11:27 | General Progress Note ---
Subjective - Review of Systems Service Date: 06/22/18 Subjective: Patient is confused, agitated at moments. Objective - Results Result Diagrams: 06/17/18 05:45 06/17/18 05:45 Recent Labs: Laboratory Last Values WBC 6.0 Th/cmm (4.8-10.8) 06/17/18 05:45 RBC 4.44 Mil/cmm (3.80-5.20) 06/17/18 05:45 Hgb 13.2 gm/dL (12-16) 06/17/18 05:45 Hct 40.0 % (41.0-60) L 06/17/18 05:45 MCV 90.1 fl (81-100) 06/17/18 05:45 MCH 29.7 pg (27.0-31.0) 06/17/18 05:45 MCHC Differential 33.0 pg (28.0-36.0) 06/17/18 05:45 RDW 14.1 % (11.5-20.0) 06/17/18 05:45 Plt Count 302 Th/cmm (150-400) 06/17/18 05:45 MPV 8.1 fl 06/17/18 05:45 Neutrophils % 67.2 % (40.0-80.0) 06/17/18 05:45 Lymphocytes % 22.4 % (20.0-50.0) 06/17/18 05:45 Monocytes % 7.4 % (2.0-10.0) 06/17/18 05:45 Eosinophils % 2.4 % (0.0-5.0) 06/17/18 05:45 Basophils % 0.6 % (0.0-2.0) 06/17/18 05:45 Sodium 139 mEq/L (136-145) 06/17/18 05:45 Potassium 3.8 mEq/L (3.5-5.1) 06/17/18 05:45 Chloride 105 mEq/L (98-107) 06/17/18 05:45 Carbon Dioxide 26.6 mEq/L (21.0-31.0) 06/17/18 05:45 Anion Gap 11.2 (7.0-16.0) 06/17/18 05:45 BUN 12 mg/dL (7-25) 06/17/18 05:45 Creatinine 0.6 mg/dL (0.6-1.2) 06/17/18 05:45 Est GFR ( Amer) > 60.0 ml/min (>90) 06/17/18 05:45 Est GFR (Non-Af Amer) > 60.0 ml/min 06/17/18 05:45 BUN/Creatinine Ratio 20.0 06/17/18 05:45 Glucose 119 mg/dL (70-105) H 06/17/18 05:45 Calcium 9.5 mg/dL (8.6-10.3) 06/17/18 05:45 Total Bilirubin 0.5 mg/dL (0.3-1.0) 06/17/18 05:45 AST 16 U/L (13-39) 06/17/18 05:45 ALT 14 U/L (7-52) 06/17/18 05:45 Alkaline Phosphatase 80 U/L (34-104) 06/17/18 05:45 Total Protein 6.9 gm/dL (6.0-8.3) 06/17/18 05:45 Albumin 4.1 gm/dL (3.7-5.3) 06/17/18 05:45 Globulin 2.8 gm/dL 06/17/18 05:45 Albumin/Globulin Ratio 1.5 (1.0-1.8) 06/17/18 05:45 Triglycerides 106 mg/dL (<150) 06/16/18 05:35 Cholesterol 166 mg/dL (<200) 06/16/18 05:35 LDL Cholesterol Direct 96 mg/dL (75-193) 06/16/18 05:35 HDL Cholesterol 53 mg/dL (23-92) 06/16/18 05:35 TSH 1.60 uIU/ml (0.34-5.60) 06/17/18 05:45 - Physical Exam Vitals and I&O: Vital Signs Temp 97.5 F 06/22/18 05:53 Pulse 75 06/22/18 05:53 Resp 18 06/22/18 05:53 BP 135/68 06/22/18 05:53 Pulse Ox 98 06/22/18 05:53 Intake & Output 06/21/18 06/22/18 06/22/18 18:59 06:59 18:59 Intake Total 1450 480 Balance 1450 480 Intake: Oral 1450 480 Other: # Voids 3 2 # Bowel Movements 0 Active Medications: Current Medications Acetaminophen (Tylenol) 650 mg PO Q4H PRN PRN Reason: Mild Pain / Temp above 100 Stop: 08/14/18 14:54 Al Hydrox/Mg Hydrox/Simethicone (Maalox) 30 ml PO Q4HR PRN PRN Reason: GI DISTRESS Stop: 08/14/18 14:54 Atorvastatin Calcium (Lipitor) 20 mg PO DAILY [facility]; Protocol Stop: 08/15/18 08:59 Last Admin: 06/22/18 09:24 Dose: 20 mg Docusate Sodium (Colace) 100 mg PO BID [facility] Stop: 08/14/18 16:59 Last Admin: 06/22/18 09:25 Dose: 100 mg Lorazepam (Ativan) 0.5 mg PO Q4H PRN; Protocol PRN Reason: Anxiety Stop: 08/14/18 14:54 Last Admin: 06/22/18 03:01 Dose: 0.5 mg Magnesium Hydroxide (Milk Of Magnesia) 30 ml PO HS PRN PRN Reason: Constipation Metformin HCl (Glucophage) 500 mg PO BID [facility] Stop: 08/14/18 16:59 Last Admin: 06/22/18 09:25 Dose: 500 mg Multivitamins/Vitamin C (Theragran) 1 tab PO DAILY [facility] Stop: 08/15/18 08:59 Last Admin: 06/22/18 09:25 Dose: 1 tab Quetiapine Fumarate (Seroquel) 75 mg PO BID [facility] Stop: 08/21/18 08:59 Last Admin: 06/22/18 09:25 Dose: 75 mg Quetiapine Fumarate (Seroquel) 200 mg PO HS [facility] Stop: 08/21/18 20:59 Zolpidem Tartrate (Ambien) 5 mg PO HS PRN PRN Reason: Insomnia Stop: 08/14/18 14:54 Last Admin: 06/21/18 21:45 Dose: 5 mg General: Alert, No acute distress HEENT: Atraumatic, Other (patient is blind) Neck: Supple Cardiovascular: Regular rate Lungs: Clear to auscultation Abdomen: Bowel sounds, Soft Extremities: Other (No edema) Neurological: Normal gait Skin: Other (Warm and dry) Psych/Mental Status: Other (Patient is confused, not oriented.) Assessment/Plan - Assessment Assessment: Patient is awake, alert, calm, in no acute distress. Dx: Increased in agitation , Blind, DM. - Plan Plan: Patient is under Psychiatric care. Will continue with SNF meds. Will continue to monitor. Nutritional Asmnt/Malnutr-PDOC - Dietary Evaluation Malnutrition Findings (Please click <Entered> for more info): Nutritional Asmnt/Malnutrition Start: 06/19/18 13: 00 Text: Status: Complete Freq: Protocol: Document 06/19/18 13:01 MONCHO (Rec: 06/19/18 13:13 MONCHO [email or web address]) Nutritional Asmnt/Malnutrition Patient General Information Nutritional Screening Moderate Risk Diagnosis bipolar disorder Pertinent Medical Hx/Surgical Hx dementia, psychosis, diabetes, legally blind Subjective Information Pt eating lunch in hallway at time of visit. Pt was confused , but provided food preferences. Nursing noted PO intake: 75-100% average since admit. Current Diet Order/ Nutrition Support CCHO 45g Pertinent Medications maalox, lipitor, colace, MOM, glucophage, theragran, seroquel Pertinent Labs 06/17: glucose 119 Nutritional Hx/Data Height 1.6 m Height (Calculated Centimeters) 160.0 Current Weight (lbs) 100.698 kg Weight (Calculated Kilograms) 100.7 Weight (Calculated Grams) 559338.5 [place] Body Weight 115 lb Body Mass Index (BMI) 39.3 Weight Status Obese GI Symptoms GI Symptoms None Last BM 06/16 Difficult in: None Food Allergies No Skin Integrity/Comment: intact Current %PO Good (75-100%) Estimated Nutritional Goals BEE in Kcals: Adj wt of IBW Calories/Kcals/Kg 25-30 (adj wt 142 lbs) Kcals Calculated 5541-3354 Protein: Adj wt of IBW Protein g/k-1.2 Protein Calculated 64-77 g Fluid: ml 1620-6286 (1 ml/kcal) Nutritional Problem No current Nutrition Prob Problem no nutrition dx at this time Malnutrition Alert Is there a minimum of two criteria No selected? Query Text:Check all the applicable criteria. A minimum of two criteria are recommended for diagnosis of either severe or non-severe malnutrition. Malnutrition Related to Morbid Obesity Malnutrition related to morbid obesity No Intervention/Recommendation Comments 1. [facility] with [facility] diet. Recommend modifying carb to 60gm. 2. Monitor PO intake, wt, and labs 3. F/U as low risk in 7 days, 06/26 Expected Outcomes/Goals Expected Outcomes/Goals 1. PO intake to meet at least 75% of all meals 2. Wt stability and nutrition related labs WNL. Reviewed by Summer Villa RD
--- NOTE | 2018-06-22 21:20 | Progress Notes ---
DATE: 06/22/2018 SUBJECTIVE: Chart reviewed and the patient interviewed. Also, discussed the patient's condition with the staff and reviewed records and labs. The patient was screaming and yelling and severely agitated in the middle of the night and she was not able to sleep and she was refusing to take her medications. The patient also was restless and in angry and irritable mood and the patient was given Ativan to calm her down. She is also still easily agitated and is still delusional and talking about devil. Otherwise, no side effects of medications. ASSESSMENT: The patient is still psychotic and uncooperative with her treatment which might be because of her psychosis. TREATMENT PLAN: We will continue monitoring behavior and work on behavior modification. Also, we will increase Seroquel to 75 mg twice a day and 200 mg at bedtime and encouraged the patient to take her medications. [facility]# [id number]
--- NOTE | 2018-06-23 08:43 | General Progress Note ---
Subjective - Review of Systems Service Date: 06/23/18 Subjective: Patient is confused, agitated at moments. Objective - Results Result Diagrams: 06/17/18 05:45 06/17/18 05:45 Recent Labs: Laboratory Last Values WBC 6.0 Th/cmm (4.8-10.8) 06/17/18 05:45 RBC 4.44 Mil/cmm (3.80-5.20) 06/17/18 05:45 Hgb 13.2 gm/dL (12-16) 06/17/18 05:45 Hct 40.0 % (41.0-60) L 06/17/18 05:45 MCV 90.1 fl (81-100) 06/17/18 05:45 MCH 29.7 pg (27.0-31.0) 06/17/18 05:45 MCHC Differential 33.0 pg (28.0-36.0) 06/17/18 05:45 RDW 14.1 % (11.5-20.0) 06/17/18 05:45 Plt Count 302 Th/cmm (150-400) 06/17/18 05:45 MPV 8.1 fl 06/17/18 05:45 Neutrophils % 67.2 % (40.0-80.0) 06/17/18 05:45 Lymphocytes % 22.4 % (20.0-50.0) 06/17/18 05:45 Monocytes % 7.4 % (2.0-10.0) 06/17/18 05:45 Eosinophils % 2.4 % (0.0-5.0) 06/17/18 05:45 Basophils % 0.6 % (0.0-2.0) 06/17/18 05:45 Sodium 139 mEq/L (136-145) 06/17/18 05:45 Potassium 3.8 mEq/L (3.5-5.1) 06/17/18 05:45 Chloride 105 mEq/L (98-107) 06/17/18 05:45 Carbon Dioxide 26.6 mEq/L (21.0-31.0) 06/17/18 05:45 Anion Gap 11.2 (7.0-16.0) 06/17/18 05:45 BUN 12 mg/dL (7-25) 06/17/18 05:45 Creatinine 0.6 mg/dL (0.6-1.2) 06/17/18 05:45 Est GFR ( Amer) > 60.0 ml/min (>90) 06/17/18 05:45 Est GFR (Non-Af Amer) > 60.0 ml/min 06/17/18 05:45 BUN/Creatinine Ratio 20.0 06/17/18 05:45 Glucose 119 mg/dL (70-105) H 06/17/18 05:45 Calcium 9.5 mg/dL (8.6-10.3) 06/17/18 05:45 Total Bilirubin 0.5 mg/dL (0.3-1.0) 06/17/18 05:45 AST 16 U/L (13-39) 06/17/18 05:45 ALT 14 U/L (7-52) 06/17/18 05:45 Alkaline Phosphatase 80 U/L (34-104) 06/17/18 05:45 Total Protein 6.9 gm/dL (6.0-8.3) 06/17/18 05:45 Albumin 4.1 gm/dL (3.7-5.3) 06/17/18 05:45 Globulin 2.8 gm/dL 06/17/18 05:45 Albumin/Globulin Ratio 1.5 (1.0-1.8) 06/17/18 05:45 Triglycerides 106 mg/dL (<150) 06/16/18 05:35 Cholesterol 166 mg/dL (<200) 06/16/18 05:35 LDL Cholesterol Direct 96 mg/dL (75-193) 06/16/18 05:35 HDL Cholesterol 53 mg/dL (23-92) 06/16/18 05:35 TSH 1.60 uIU/ml (0.34-5.60) 06/17/18 05:45 - Physical Exam Vitals and I&O: Vital Signs Temp 97.6 F 06/23/18 05:59 Pulse 72 06/23/18 05:59 Resp 18 06/23/18 05:59 BP 125/50 06/23/18 05:59 Pulse Ox 98 06/23/18 05:59 Intake & Output 06/22/18 06/23/18 06/23/18 18:59 06:59 18:59 Intake Total 120 Balance 120 Intake: Oral 120 Other: # Voids 3 # Bowel Movements 0 Active Medications: Current Medications Acetaminophen (Tylenol) 650 mg PO Q4H PRN PRN Reason: Mild Pain / Temp above 100 Stop: 08/14/18 14:54 Al Hydrox/Mg Hydrox/Simethicone (Maalox) 30 ml PO Q4HR PRN PRN Reason: GI DISTRESS Stop: 08/14/18 14:54 Atorvastatin Calcium (Lipitor) 20 mg PO DAILY [facility]; Protocol Stop: 08/15/18 08:59 Last Admin: 06/22/18 09:24 Dose: 20 mg Docusate Sodium (Colace) 100 mg PO BID [facility] Stop: 08/14/18 16:59 Last Admin: 06/22/18 16:41 Dose: 100 mg Magnesium Hydroxide (Milk Of Magnesia) 30 ml PO HS PRN PRN Reason: Constipation Metformin HCl (Glucophage) 500 mg PO BID [facility] Stop: 08/14/18 16:59 Last Admin: 06/22/18 16:41 Dose: 500 mg Multivitamins/Vitamin C (Theragran) 1 tab PO DAILY [facility] Stop: 08/15/18 08:59 Last Admin: 06/22/18 09:25 Dose: 1 tab Quetiapine Fumarate (Seroquel) 75 mg PO BID [facility] Stop: 08/21/18 08:59 Last Admin: 06/22/18 16:41 Dose: 75 mg Quetiapine Fumarate (Seroquel) 200 mg PO HS [facility] Stop: 08/21/18 20:59 Last Admin: 06/22/18 20:36 Dose: 200 mg General: Alert, No acute distress HEENT: Atraumatic, Other (patient is blind) Neck: Supple Cardiovascular: Regular rate Lungs: Clear to auscultation Abdomen: Bowel sounds, Soft Extremities: Other (No edema) Neurological: Normal gait Skin: Other (Warm and dry) Psych/Mental Status: Other (Patient is confused, not oriented.) Assessment/Plan - Assessment Assessment: Patient is awake, alert, calm, in no acute distress. Dx: Increased in agitation , Blind, DM. - Plan Plan: Patient is under Psychiatric care. Will continue with SNF meds. Will continue to monitor. Nutritional Asmnt/Malnutr-PDOC - Dietary Evaluation Malnutrition Findings (Please click <Entered> for more info): Nutritional Asmnt/Malnutrition Start: 06/19/18 13: 00 Text: Status: Complete Freq: Protocol: Document 06/19/18 13:01 MONCHO (Rec: 06/19/18 13:13 MONCHO THOMAS) Nutritional Asmnt/Malnutrition Patient General Information Nutritional Screening Moderate Risk Diagnosis bipolar disorder Pertinent Medical Hx/Surgical Hx dementia, psychosis, diabetes, legally blind Subjective Information Pt eating lunch in hallway at time of visit. Pt was confused , but provided food preferences. Nursing noted PO intake: 75-100% average since admit. Current Diet Order/ Nutrition Support CCHO 45g Pertinent Medications maalox, lipitor, colace, MOM, glucophage, theragran, seroquel Pertinent Labs 06/17: glucose 119 Nutritional Hx/Data Height 1.6 m Height (Calculated Centimeters) 160.0 Current Weight (lbs) 100.698 kg Weight (Calculated Kilograms) 100.7 Weight (Calculated Grams) 825499.5 [place] Body Weight 115 lb Body Mass Index (BMI) 39.3 Weight Status Obese GI Symptoms GI Symptoms None Last BM 06/16 Difficult in: None Food Allergies No Skin Integrity/Comment: intact Current %PO Good (75-100%) Estimated Nutritional Goals BEE in Kcals: Adj wt of IBW Calories/Kcals/Kg 25-30 (adj wt 142 lbs) Kcals Calculated 0397-8999 Protein: Adj wt of IBW Protein g/k-1.2 Protein Calculated 64-77 g Fluid: ml 2106-3790 (1 ml/kcal) Nutritional Problem No current Nutrition Prob Problem no nutrition dx at this time Malnutrition Alert Is there a minimum of two criteria No selected? Query Text:Check all the applicable criteria. A minimum of two criteria are recommended for diagnosis of either severe or non-severe malnutrition. Malnutrition Related to Morbid Obesity Malnutrition related to morbid obesity No Intervention/Recommendation Comments 1. Continue with [facility] diet. Recommend modifying carb to 60gm. 2. Monitor PO intake, wt, and labs 3. F/U as low risk in 7 days, 06/26 Expected Outcomes/Goals Expected Outcomes/Goals 1. PO intake to meet at least 75% of all meals 2. Wt stability and nutrition related labs WNL. Reviewed by Summer Villa RD
[2018-06-23] MEDS: Multivitamin Tab PO SCH (08:59)
[2018-06-23] MEDS: Atorvastatin Calcium 10 MG TAB PO SCH (08:59)
--- NOTE | 2018-06-24 08:44 | General Progress Note ---
Subjective - Review of Systems Service Date: 06/24/18 Subjective: Patient is confused, not oriented. Objective - Results Result Diagrams: 06/17/18 05:45 06/17/18 05:45 Recent Labs: Laboratory Last Values WBC 6.0 Th/cmm (4.8-10.8) 06/17/18 05:45 RBC 4.44 Mil/cmm (3.80-5.20) 06/17/18 05:45 Hgb 13.2 gm/dL (12-16) 06/17/18 05:45 Hct 40.0 % (41.0-60) L 06/17/18 05:45 MCV 90.1 fl (81-100) 06/17/18 05:45 MCH 29.7 pg (27.0-31.0) 06/17/18 05:45 MCHC Differential 33.0 pg (28.0-36.0) 06/17/18 05:45 RDW 14.1 % (11.5-20.0) 06/17/18 05:45 Plt Count 302 Th/cmm (150-400) 06/17/18 05:45 MPV 8.1 fl 06/17/18 05:45 Neutrophils % 67.2 % (40.0-80.0) 06/17/18 05:45 Lymphocytes % 22.4 % (20.0-50.0) 06/17/18 05:45 Monocytes % 7.4 % (2.0-10.0) 06/17/18 05:45 Eosinophils % 2.4 % (0.0-5.0) 06/17/18 05:45 Basophils % 0.6 % (0.0-2.0) 06/17/18 05:45 Sodium 139 mEq/L (136-145) 06/17/18 05:45 Potassium 3.8 mEq/L (3.5-5.1) 06/17/18 05:45 Chloride 105 mEq/L (98-107) 06/17/18 05:45 Carbon Dioxide 26.6 mEq/L (21.0-31.0) 06/17/18 05:45 Anion Gap 11.2 (7.0-16.0) 06/17/18 05:45 BUN 12 mg/dL (7-25) 06/17/18 05:45 Creatinine 0.6 mg/dL (0.6-1.2) 06/17/18 05:45 Est GFR ( Amer) > 60.0 ml/min (>90) 06/17/18 05:45 Est GFR (Non-Af Amer) > 60.0 ml/min 06/17/18 05:45 BUN/Creatinine Ratio 20.0 06/17/18 05:45 Glucose 119 mg/dL (70-105) H 06/17/18 05:45 Calcium 9.5 mg/dL (8.6-10.3) 06/17/18 05:45 Total Bilirubin 0.5 mg/dL (0.3-1.0) 06/17/18 05:45 AST 16 U/L (13-39) 06/17/18 05:45 ALT 14 U/L (7-52) 06/17/18 05:45 Alkaline Phosphatase 80 U/L (34-104) 06/17/18 05:45 Total Protein 6.9 gm/dL (6.0-8.3) 06/17/18 05:45 Albumin 4.1 gm/dL (3.7-5.3) 06/17/18 05:45 Globulin 2.8 gm/dL 06/17/18 05:45 Albumin/Globulin Ratio 1.5 (1.0-1.8) 06/17/18 05:45 Triglycerides 106 mg/dL (<150) 06/16/18 05:35 Cholesterol 166 mg/dL (<200) 06/16/18 05:35 LDL Cholesterol Direct 96 mg/dL (75-193) 06/16/18 05:35 HDL Cholesterol 53 mg/dL (23-92) 06/16/18 05:35 TSH 1.60 uIU/ml (0.34-5.60) 06/17/18 05:45 - Physical Exam Vitals and I&O: Vital Signs Temp 98 F 06/24/18 06:08 Pulse 84 06/24/18 06:08 Resp 20 06/24/18 06:08 BP 127/65 06/24/18 06:08 Pulse Ox 97 06/24/18 06:08 Intake & Output 06/23/18 06/24/18 06/24/18 18:59 06:59 18:59 Intake Total 1500 720 Balance 1500 720 Intake: Oral 1500 720 Other: # Voids 1 Active Medications: Current Medications Acetaminophen (Tylenol) 650 mg PO Q4H PRN PRN Reason: Mild Pain / Temp above 100 Stop: 08/14/18 14:54 Al Hydrox/Mg Hydrox/Simethicone (Maalox) 30 ml PO Q4HR PRN PRN Reason: GI DISTRESS Stop: 08/14/18 14:54 Atorvastatin Calcium (Lipitor) 20 mg PO DAILY [facility]; Protocol Stop: 08/15/18 08:59 Last Admin: 06/23/18 08:59 Dose: 20 mg Docusate Sodium (Colace) 100 mg PO BID [facility] Stop: 08/14/18 16:59 Last Admin: 06/23/18 17:00 Dose: 100 mg Haloperidol Lactate (Haldol Concentrate 10mg/5ml Susp) 5 mg PO BID [facility]; Protocol Stop: 08/23/18 08:59 Magnesium Hydroxide (Milk Of Magnesia) 30 ml PO HS PRN PRN Reason: Constipation Metformin HCl (Glucophage) 500 mg PO BID [facility] Stop: 08/14/18 16:59 Last Admin: 06/23/18 17:01 Dose: 500 mg Multivitamins/Vitamin C (Theragran) 1 tab PO DAILY [facility] Stop: 08/15/18 08:59 Last Admin: 06/23/18 08:59 Dose: 1 tab Quetiapine Fumarate (Seroquel) 100 mg PO BID [facility] Stop: 08/22/18 16:59 Last Admin: 06/23/18 17:00 Dose: 100 mg Quetiapine Fumarate 200 mg/ (Quetiapine Fumarate 50 mg) 250 mg PO HS [facility] Stop: 08/22/18 20:59 Last Admin: 06/23/18 20:37 Dose: 50 mg General: Alert, No acute distress HEENT: Atraumatic, Other (patient is blind) Neck: Supple Cardiovascular: Regular rate Lungs: Clear to auscultation Abdomen: Bowel sounds, Soft Extremities: Other (No edema) Neurological: Normal gait Skin: Other (Warm and dry) Psych/Mental Status: Other (Patient is confused, not oriented.) Assessment/Plan - Assessment Assessment: Patient is awake, alert, calm, in no acute distress. Dx: Increased in agitation , Blind, DM. - Plan Plan: Patient is under Psychiatric care. Will continue with SNF meds. Will continue to monitor. Nutritional Asmnt/Malnutr-PDOC - Dietary Evaluation Malnutrition Findings (Please click <Entered> for more info): Nutritional Asmnt/Malnutrition Start: 06/19/18 13: 00 Text: Status: Complete Freq: Protocol: Document 06/19/18 13:01 MONCHO (Rec: 06/19/18 13:13 MONCHO THOMAS) Nutritional Asmnt/Malnutrition Patient General Information Nutritional Screening Moderate Risk Diagnosis bipolar disorder Pertinent Medical Hx/Surgical Hx dementia, psychosis, diabetes, legally blind Subjective Information Pt eating lunch in hallway at time of visit. Pt was confused , but provided food preferences. Nursing noted PO intake: 75-100% average since admit. Current Diet Order/ Nutrition Support CCHO 45g Pertinent Medications maalox, lipitor, colace, MOM, glucophage, theragran, seroquel Pertinent Labs 06/17: glucose 119 Nutritional Hx/Data Height 1.6 m Height (Calculated Centimeters) 160.0 Current Weight (lbs) 100.698 kg Weight (Calculated Kilograms) 100.7 Weight (Calculated Grams) 486243.5 [place] Body Weight 115 lb Body Mass Index (BMI) 39.3 Weight Status Obese GI Symptoms GI Symptoms None Last BM 06/16 Difficult in: None Food Allergies No Skin Integrity/Comment: intact Current %PO Good (75-100%) Estimated Nutritional Goals BEE in Kcals: Adj wt of IBW Calories/Kcals/Kg 25-30 (adj wt 142 lbs) Kcals Calculated 9719-4395 Protein: Adj wt of IBW Protein g/k-1.2 Protein Calculated 64-77 g Fluid: ml 3010-9796 (1 ml/kcal) Nutritional Problem No current Nutrition Prob Problem no nutrition dx at this time Malnutrition Alert Is there a minimum of two criteria No selected? Query Text:Check all the applicable criteria. A minimum of two criteria are recommended for diagnosis of either severe or non-severe malnutrition. Malnutrition Related to Morbid Obesity Malnutrition related to morbid obesity No Intervention/Recommendation Comments 1. [facility]. Recommend modifying carb to 60gm. 2. Monitor PO intake, wt, and labs 3. F/U as low risk in 7 days, 06/26 Expected Outcomes/Goals Expected Outcomes/Goals 1. PO intake to meet at least 75% of all meals 2. Wt stability and nutrition related labs WNL. Reviewed by Summer Villa RD
--- NOTE | 2018-06-24 09:22 | Progress Notes ---
DATE: 06/23/2018 SUBJECTIVE: Chart reviewed and the patient interviewed. Also discussed the patient's condition with the staff and reviewed records and labs. The patient is still extremely agitated and irritable and angry mood. The patient also is still talking to herself and is still actively hallucinating and actively responding. She also is still restless and she still has severe mood swings. Otherwise, the patient is compliant with taking her medications with no side effect of medications. ASSESSMENT: The patient is still agitated and psychotic. TREATMENT PLAN: Continue to monitor behavior and condition closely. Also, we will increase Seroquel to 100 mg twice a day and 250 mg at bedtime and continue to follow up. Also discussed with case therapistaccount manager relief issue and possibility that the patient can go to [facility] for placement. JOB# [id number]
[2018-06-24] MEDS: Atorvastatin Calcium 10 MG TAB PO SCH (09:43)
[2018-06-24] MEDS: Haldol Oral Sol.(concentrate) 10 mg/5 mL Udc PO SCH ×2 (09:44→18:10)
[2018-06-24] MEDS: Multivitamin Tab PO SCH (09:44)
--- NOTE | 2018-06-24 22:42 | Progress Notes ---
DATE: 06/24/2018 SUBJECTIVE: Chart reviewed and the patient interviewed. Also discussed the patient's condition with the staff and reviewed records and labs. The patient still seemed irritable and agitated. The patient also is still suspicious and is still paranoid. She is also still yelling and screaming constantly and did not sleep much last night. She also is selective with medications and yesterday at night she did not take except 50 mg of Thorazine ____ 250 mg. The patient also still constantly yelling and screaming and talking about the devil and have difficulty with monitor care behavior. ASSESSMENT: The patient is agitated and is still extremely irritable. TREATMENT PLAN: We will continue monitoring her behavior and her condition closely. Also, we will add Haldol 5 mg twice a day for better compliance with plan to change it to Haldol Decanoate and will continue to follow up. JOB# [id number]
[2018-06-25] MEDS: Haldol Oral Sol.(concentrate) 10 mg/5 mL Udc PO SCH ×2 (09:19→17:21)
[2018-06-25] MEDS: Atorvastatin Calcium 10 MG TAB PO SCH (09:21)
[2018-06-25] MEDS: Multivitamin Tab PO SCH (09:22)
--- NOTE | 2018-06-25 18:27 | Progress Notes ---
DATE: 06/25/2018 SUBJECTIVE: Chart reviewed and the patient interviewed. Also, discussed the patient's condition with the staff and reviewed records and labs. The patient seems to be slightly calmer today and not as agitated. The patient also still has difficulty sleeping all night, but at the same time, she slept slightly more yesterday. The patient is still rambling and is still easily agitated and talking to herself. Otherwise, the patient is compliant with medications with no side effects of medications. ASSESSMENT: The patient is still psychotic and agitated. TREATMENT PLAN: Continue to monitor behavior and condition closely. Also, continue to work on irritability and her agitation and continue to follow up. [facility]# [id number]
--- NOTE | 2018-06-26 08:35 | General Progress Note ---
Subjective - Review of Systems Service Date: 06/26/18 Subjective: Patient is confused, not oriented. Objective - Results Result Diagrams: 06/17/18 05:45 06/17/18 05:45 Recent Labs: Laboratory Last Values WBC 6.0 Th/cmm (4.8-10.8) 06/17/18 05:45 RBC 4.44 Mil/cmm (3.80-5.20) 06/17/18 05:45 Hgb 13.2 gm/dL (12-16) 06/17/18 05:45 Hct 40.0 % (41.0-60) L 06/17/18 05:45 MCV 90.1 fl (81-100) 06/17/18 05:45 MCH 29.7 pg (27.0-31.0) 06/17/18 05:45 MCHC Differential 33.0 pg (28.0-36.0) 06/17/18 05:45 RDW 14.1 % (11.5-20.0) 06/17/18 05:45 Plt Count 302 Th/cmm (150-400) 06/17/18 05:45 MPV 8.1 fl 06/17/18 05:45 Neutrophils % 67.2 % (40.0-80.0) 06/17/18 05:45 Lymphocytes % 22.4 % (20.0-50.0) 06/17/18 05:45 Monocytes % 7.4 % (2.0-10.0) 06/17/18 05:45 Eosinophils % 2.4 % (0.0-5.0) 06/17/18 05:45 Basophils % 0.6 % (0.0-2.0) 06/17/18 05:45 Sodium 139 mEq/L (136-145) 06/17/18 05:45 Potassium 3.8 mEq/L (3.5-5.1) 06/17/18 05:45 Chloride 105 mEq/L (98-107) 06/17/18 05:45 Carbon Dioxide 26.6 mEq/L (21.0-31.0) 06/17/18 05:45 Anion Gap 11.2 (7.0-16.0) 06/17/18 05:45 BUN 12 mg/dL (7-25) 06/17/18 05:45 Creatinine 0.6 mg/dL (0.6-1.2) 06/17/18 05:45 Est GFR ( Amer) > 60.0 ml/min (>90) 06/17/18 05:45 Est GFR (Non-Af Amer) > 60.0 ml/min 06/17/18 05:45 BUN/Creatinine Ratio 20.0 06/17/18 05:45 Glucose 119 mg/dL (70-105) H 06/17/18 05:45 Calcium 9.5 mg/dL (8.6-10.3) 06/17/18 05:45 Total Bilirubin 0.5 mg/dL (0.3-1.0) 06/17/18 05:45 AST 16 U/L (13-39) 06/17/18 05:45 ALT 14 U/L (7-52) 06/17/18 05:45 Alkaline Phosphatase 80 U/L (34-104) 06/17/18 05:45 Total Protein 6.9 gm/dL (6.0-8.3) 06/17/18 05:45 Albumin 4.1 gm/dL (3.7-5.3) 06/17/18 05:45 Globulin 2.8 gm/dL 06/17/18 05:45 Albumin/Globulin Ratio 1.5 (1.0-1.8) 06/17/18 05:45 Triglycerides 106 mg/dL (<150) 06/16/18 05:35 Cholesterol 166 mg/dL (<200) 06/16/18 05:35 LDL Cholesterol Direct 96 mg/dL (75-193) 06/16/18 05:35 HDL Cholesterol 53 mg/dL (23-92) 06/16/18 05:35 TSH 1.60 uIU/ml (0.34-5.60) 06/17/18 05:45 - Physical Exam Vitals and I&O: Vital Signs Temp 97.2 F 06/26/18 06:56 Pulse 77 06/26/18 06:56 Resp 20 06/26/18 06:56 BP 131/62 06/26/18 06:56 Pulse Ox 98 06/26/18 06:56 Intake & Output 06/25/18 06/26/18 06/26/18 18:59 06:59 18:59 Intake Total 120 Balance 120 Intake: Oral 120 Other: # Voids 2 2 # Bowel Movements 1 Active Medications: Current Medications Acetaminophen (Tylenol) 650 mg PO Q4H PRN PRN Reason: Mild Pain / Temp above 100 Stop: 08/14/18 14:54 Al Hydrox/Mg Hydrox/Simethicone (Maalox) 30 ml PO Q4HR PRN PRN Reason: GI DISTRESS Stop: 08/14/18 14:54 Atorvastatin Calcium (Lipitor) 20 mg PO DAILY [facility]; Protocol Stop: 08/15/18 08:59 Last Admin: 06/25/18 09:21 Dose: 20 mg Docusate Sodium (Colace) 100 mg PO BID [facility] Stop: 08/14/18 16:59 Last Admin: 06/25/18 17:21 Dose: 100 mg Haloperidol Lactate (Haldol Concentrate 10mg/5ml Susp) 5 mg PO BID [facility]; Protocol Stop: 08/23/18 08:59 Last Admin: 06/25/18 17:21 Dose: 5 mg Lorazepam (Ativan) 0.5 mg PO Q4HR PRN; Protocol PRN Reason: agitation/anxiety Stop: 08/24/18 21:40 Magnesium Hydroxide (Milk Of Magnesia) 30 ml PO HS PRN PRN Reason: Constipation Metformin HCl (Glucophage) 500 mg PO BID [facility] Stop: 08/14/18 16:59 Last Admin: 06/25/18 17:21 Dose: 500 mg Multivitamins/Vitamin C (Theragran) 1 tab PO DAILY [facility] Stop: 08/15/18 08:59 Last Admin: 06/25/18 09:22 Dose: 1 tab Quetiapine Fumarate (Seroquel) 100 mg PO BID [facility] Stop: 08/22/18 16:59 Last Admin: 06/25/18 17:21 Dose: 100 mg Quetiapine Fumarate 200 mg/ (Quetiapine Fumarate 50 mg) 250 mg PO HS [facility] Stop: 08/22/18 20:59 Last Admin: 06/25/18 20:59 Dose: 250 mg General: Alert, No acute distress HEENT: Atraumatic, Other (patient is blind) Neck: Supple Cardiovascular: Regular rate Lungs: Clear to auscultation Abdomen: Bowel sounds, Soft Extremities: Other (No edema) Neurological: Normal gait Skin: Other (Warm and dry) Psych/Mental Status: Other (Patient is confused, not oriented.) Assessment/Plan - Assessment Assessment: Patient is awake, alert, calm, in no acute distress. Dx: Increased in agitation , Blind, DM. - Plan Plan: Patient is under Psychiatric care. Will continue with SNF meds. Will continue to monitor. Nutritional Asmnt/Malnutr-PDOC - Dietary Evaluation Malnutrition Findings (Please click <Entered> for more info): Nutritional Asmnt/Malnutrition Start: 06/19/18 13: 00 Text: Status: Complete Freq: Protocol: Document 06/19/18 13:01 MONCHO (Rec: 06/19/18 13:13 MONCHO [email or web address]) Nutritional Asmnt/Malnutrition Patient General Information Nutritional Screening Moderate Risk Diagnosis bipolar disorder Pertinent Medical Hx/Surgical Hx dementia, psychosis, diabetes, legally blind Subjective Information Pt eating lunch in hallway at time of visit. Pt was confused , but provided food preferences. Nursing noted PO intake: 75-100% average since admit. Current Diet Order/ Nutrition Support CCHO 45g Pertinent Medications maalox, lipitor, colace, MOM, glucophage, theragran, seroquel Pertinent Labs 06/17: glucose 119 Nutritional Hx/Data Height 1.6 m Height (Calculated Centimeters) 160.0 Current Weight (lbs) 100.698 kg Weight (Calculated Kilograms) 100.7 Weight (Calculated Grams) 371153.5 [place] Body Weight 115 lb Body Mass Index (BMI) 39.3 Weight Status Obese GI Symptoms GI Symptoms None Last BM 06/16 Difficult in: None Food Allergies No Skin Integrity/Comment: intact Current %PO Good (75-100%) Estimated Nutritional Goals BEE in Kcals: Adj wt of IBW Calories/Kcals/Kg 25-30 (adj wt 142 lbs) Kcals Calculated 4005-3077 Protein: Adj wt of IBW Protein g/k-1.2 Protein Calculated 64-77 g Fluid: ml 2815-3869 (1 ml/kcal) Nutritional Problem No current Nutrition Prob Problem no nutrition dx at this time Malnutrition Alert Is there a minimum of two criteria No selected? Query Text:Check all the applicable criteria. A minimum of two criteria are recommended for diagnosis of either severe or non-severe malnutrition. Malnutrition Related to Morbid Obesity Malnutrition related to morbid obesity No Intervention/Recommendation Comments 1. [facility]. Recommend modifying carb to 60gm. 2. Monitor PO intake, wt, and labs 3. F/U as low risk in 7 days, 06/26 Expected Outcomes/Goals Expected Outcomes/Goals 1. PO intake to meet at least 75% of all meals 2. Wt stability and nutrition related labs WNL. Reviewed by Summer Villa RD
[2018-06-26] MEDS: Atorvastatin Calcium 10 MG TAB PO SCH (09:03)
[2018-06-26] MEDS: Multivitamin Tab PO SCH (09:03)
[2018-06-26] MEDS: Haldol Oral Sol.(concentrate) 10 mg/5 mL Udc PO SCH ×2 (09:03→16:54)
--- NOTE | 2018-06-27 00:33 | Discharge Summary ---
DATE OF DISCHARGE: 06/26/2018 PATIENT'S AGE: 63. SEX: Female. PHYSICIAN: Dr. Castillo. FINAL DIAGNOSIS/PRIMARY DIAGNOSIS: Schizoaffective disorder, mixed type, severe, with psychotic features. MEDICAL DIAGNOSIS: Legally blind. REASON FOR HOSPITALIZATION: The patient was placed on 5150 hold by myself in [facility]. The patient was actively hallucinating and paranoid and the patient was delusional. I had put the patient on 5150 hold and transferred to [facility]. HOSPITAL COURSE: The patient continued to be in irritable mood and agitated. The patient also was not able to sleep at night. The patient continued to take Seroquel and Klonopin, but the patient continued to be in irritable mood and she was not able to follow directions. Haldol was added in a dose of 5 mg twice a day that helped patient to be calmer and the patient was less irritable and less agitated and was easy to follow directions. The patient's family want the patient to return home with them and the patient was discharged there. Physical exam of the patient basically showed the patient is legally blind, but no major medical problems. AFTER DISCHARGE PLANS: The patient discharged from the hospital with plans for outpatient treatment and followup as an outpatient and the patient was given appointment to see me in my office a week from her discharge. Also, prescription of psychotropic medications for 1 month with no refill was given to the patient upon discharge. EXPECTED OUTCOME AFTER DISCHARGE: Fair if the patient continues to take the psychotropic medications and follow up with discharge plans. [facility]# [id number]
--- NOTE | 2018-06-27 08:56 | Progress Notes ---
DATE: 06/26/2018 SUBJECTIVE: Chart reviewed and the patient interviewed. Also, discussed the patient's condition with the staff and reviewed records and labs. The patient seems to be calmer. The patient is less irritable and less agitated. The patient also is easier to redirect her. The patient also is compliant with taking medications with no side effects of Seroquel or Haldol. ASSESSMENT: The patient is calmer and less agitated. TREATMENT PLAN: Plan to discharge the patient today if family will take her back home and family asked they can take their patient home. JOB# [id number]
== END 2018-06-26 20:15 | disposition home or self-care (01) | DRG 885 ==
LOC: GERO2 14:18
PROVIDERS: ADMIT Psychiatry & Neurology Psychiatry; ATTEND Psychiatry & Neurology Psychiatry
DX: F25.0 Schizoaffective disorder, bipolar type (principal); F03.90 Unspecified dementia, unspecified severity, without behavioral disturbance, psychotic disturbance, mood disturbance, and anxiety; E11.9 Type 2 diabetes mellitus without complications; H54.8 Legal blindness, as defined in USA; Z79.84 Long term (current) use of oral hypoglycemic drugs
CPT/HCPCS: 36415-UA; 80053-TC; 80061-TC; 83036-90; 84443-TC; 85025-TC; G0410; J1200; J1630; J2060; Z7610

== ENCOUNTER 2019-12-17 11:57 | Inpatient (IN) | payer MEDICARE, MEDICAID ==
[2019-12-17] MEDS ORDERED: Maalox 30 mL Cup PO PRN (19:00)
[2019-12-17] MEDS ORDERED: Magnesium Hydroxide (MOM) 30 mL UDC PO PRN (19:00)
[2019-12-17] MEDS ORDERED: Acetaminophen 500 MG TAB PO PRN (19:00)
[2019-12-18 04:43] VITALS: BP 132/86
[2019-12-18] MEDS ORDERED: GLUCAGON HCl 1 MG KIT IM PRN (07:29)
[2019-12-18] MEDS: INSULIN LISPRO SLIDING SCALE 100 UNITS/ML UNIT SUBQ SCH ×4 (07:30→20:28)
[2019-12-18] MEDS: Multivitamin Tab PO SCH (09:21)
--- NOTE | 2019-12-18 11:20 | Psychiatric Evaluation ---
DATE OF SERVICE: 12/18/2019 HISTORY OF PRESENT ILLNESS: A 64-year-old female coming in from [facility], placed on a hold today for grave disability. Currently, AO to name, place. Still easily agitated, uncooperative, ongoing psychotic symptoms, voices, hearing the voice of her mom, calm on exam. PAST PSYCHIATRIC HISTORY: Psych admissions in the past. FAMILY HISTORY: Noncontributory. SOCIAL HISTORY: Unclear, but it seems that she is living with family. MEDICATIONS: Noted. She has responded well so far to Risperdal. MENTAL STATUS EXAMINATION: Stated age. Fair eye contact, blind, noted to be unkempt, loose associations. No overt SI or HI, but ongoing psychotic symptoms. Insight and judgment reasonable. She wants help. PROVISIONAL DIAGNOSES: Bipolar versus schizophrenia. MEDICAL: Please see full H and P. ESTIMATED LENGTH OF STAY: 7-10 days. ASSESSMENT: The patient requiring hospitalization, psychotic, concerns for her ability to tend to her basic needs. CONDITIONS FOR DISCHARGE: Improved mood, improved affect, better control of any psychotic symptoms. [facility]# [id number]
--- NOTE | 2019-12-18 11:39 | Consultation ---
DATE OF CONSULTATION: HISTORY OF PRESENT ILLNESS: We have a 64-year-old female with diabetes, hypertension, who is legally blind. The patient was transferred here from [facility] for continuing care of agitation. The patient has no nausea, vomiting, abdominal pain, diarrhea. At this time, the patient was found to have renal failure and hypernatremia at [facility]. PAST MEDICAL HISTORY: 1. Diabetes. 2. Hypertension. 3. Renal failure. 4. Urinary tract infection. 5. Hypernatremia. PAST SURGICAL HISTORY: None. MEDICATIONS: List reviewed. ALLERGIES: None. SOCIAL HISTORY: Tobacco, IV drugs, and ETOH negative. PHYSICAL EXAMINATION: VITAL SIGNS: Temperature is 98.2, pulse 92, respirations 14, blood pressure 107/65, satting 97%. HEENT: Normocephalic, atraumatic head exam. NECK: Supple. CARDIOVASCULAR: Regular rate and rhythm. LUNGS: Decreased breath sounds. ABDOMEN: Soft, nontender. EXTREMITIES: No edema, cyanosis or clubbing. ASSESSMENT AND PLAN: 1. Agitation. 2. Diabetes. 3. Hypertension. 4. Renal failure. 5. Status post urinary tract infection. The patient will be started on IV antibiotics. The patient will have labs next week. JOB# [id number]
[2019-12-18] MEDS: Betamethasone/Clotrimazole Cream 15 gm Tube TP SCH (18:45)
[2019-12-18] MEDS ORDERED: Atorvastatin Calcium 10 MG TAB PO SCH (21:00)
[2019-12-19] MEDS: INSULIN LISPRO SLIDING SCALE 100 UNITS/ML UNIT SUBQ SCH ×2 (06:45→11:30)
[2019-12-19] MEDS ORDERED: NYSTATIN 100000 UNITS/GM POWD TP SCH ×2 (09:00)
[2019-12-19] MEDS ORDERED: DAPAGLIFLOZIN PROPANEDIOL 10 MG PO SCH (09:00)
[2019-12-19] MEDS ORDERED: Lactulose 10 Gm/15 mL 30mL UDC PO SCH ×2 (09:00)
[2019-12-19] MEDS: Betamethasone/Clotrimazole Cream 15 gm Tube TP SCH (09:10)
[2019-12-19] MEDS: Multivitamin Tab PO SCH (09:24)
--- NOTE | 2019-12-19 11:18 | Progress Notes ---
DATE: 12/19/2019 SUBJECTIVE: A 64-year-old female, currently in the hospital, coming from [facility], placed on a hold for grave disability, able to name and place, still easily agitated, noncooperative, still hearing the voice of her mother. She is calmer on exam. I was treating her over at [facility] with some improvement, slept comfortably, sleeping but arousable, still some disorientation, legally blind, forgetful, depressed, ongoing psychosis. Fair sleep and appetite, amenable to treatments. Following unit rules and directions better, still responding to internal stimuli, still talking to her mother at times. Time was spent reviewing the chart. Nursing notes and labs were reviewed. Vitals were also reviewed. Blood pressure 126/67, pulse of 83. Medications were noted, seems to be responding well to the Risperdal. MENTAL STATUS EXAMINATION: Stated age. Fair eye contact. Sleeping, but arousable, noted to be blind. Mood "okay." Affect flat, ongoing psychosis. No overt SI or HI. PLAN: We will continue to monitor, increase dosing of Risperdal slowly. Monitor for any side effects. No EPS, no akathisia. We will coordinate care with health social work professor as the patient may need a place to live when she leaves the hospital. It is unclear if she can go back home. [facility]# [id number]
--- NOTE | 2019-12-19 11:34 | Progress Notes ---
DATE: 12/19/2019 SUBJECTIVE: The patient is complaining of abdominal pain, foul smelling odor of stools according to nurses. No nausea or vomiting. No fevers, chills, or night sweats. PHYSICAL EXAMINATION: VITAL SIGNS: Temperature 97.3, pulse 84, respirations 12, blood pressure 144/64. HEENT: Normocephalic, atraumatic head exam. NECK: Supple. CARDIOVASCULAR: Regular rate and rhythm. LUNGS: Decreased breath sounds. ABDOMEN: Tender. EXTREMITIES: No edema, cyanosis or clubbing. ASSESSMENT AND PLAN: 1. Abdominal pain. 2. Diarrhea. 3. Depression. The patient will be transferred to [facility] for medical workup. The patient's pain is not improving. She is declining. JOB# [id number]
--- NOTE | 2019-12-20 07:01 | Discharge Summary ---
DATE OF DISCHARGE: 12/19/2019 HISTORY OF PRESENT ILLNESS: A 64-year-old female coming in from [facility] after medical clearance, psychotic, hearing voices of her mother, rambling, sometimes agitated, could not be cared for at a lower level given her psychotic symptoms. PAST PSYCHIATRIC HISTORY: Admissions in the past, bipolar versus schizophrenia. MEDICAL: Please see full H and P. multiple and complex medical problems. SOCIAL HISTORY: Unclear. PROVISIONAL DIAGNOSIS: Bipolar, rule out schizophrenia. HOSPITAL COURSE: After initial assessment, the patient was started on Risperdal, which seems to be helping her. As hospital course progressed, she was calm; however, she medically decompensated on 12/19/2019, sent to a [facility]Surg hospital for higher level of medical care. CONDITION UPON DISCHARGE: Some improvement, but could benefit from further hospitalization. DISCHARGE DIAGNOSES: Bipolar versus schizophrenia. MEDICAL: Please see full H and P. PROGNOSIS: The patient could benefit from further hospitalization. [facility]# [id number]
== END 2019-12-19 14:10 | disposition short-term general hospital (02) | DRG 885 ==
LOC: GERO 18:24
PROVIDERS: ADMIT Psychiatry & Neurology Psychiatry; ATTEND Psychiatry & Neurology Psychiatry
DX: F31.9 Bipolar disorder, unspecified (principal); E11.9 Type 2 diabetes mellitus without complications; I10 Essential (primary) hypertension; H54.8 Legal blindness, as defined in USA; F20.9 Schizophrenia, unspecified; Z79.899 Other long term (current) drug therapy
CPT/HCPCS: 82948-90; 83036-90; X3904; Z7610